=== PATIENT | female | born 1980 ===

== ENCOUNTER 2024-09-05 01:34 | Emergency (ER) | payer MEDICAID ==
[~2024-09-05] VITALS: Ht 167.6 cm; Wt 70.5 kg
[2024-09-05 01:41] VITALS: BP 118/72; PULSE 94; RESP 20; TEMP 98.5; O2SAT 100
== END 2024-09-05 03:38 ==
LOC: EMS 01:35
DX: F10.129 Alcohol abuse with intoxication, unspecified (principal); Z65.3 Problems related to other legal circumstances; Z02.89 Encounter for other administrative examinations
CPT/HCPCS: 99283; Z7502